=== PATIENT | male | born 1935 | race Caucasian/White ===

== ENCOUNTER 2020-03-21 16:22 | Inpatient (IN) | payer MEDICARE, OTHER ==
[~2020-03-21] VITALS: Ht 188 cm; Wt 73.0 kg
--- NOTE | 2020-03-21 17:00 | NUR ---
pt confused, trying to leave the room holding, yelling and threathening the nurses. comfort measures and reorientation not helpful.
[2020-03-21 17:08] LABS: BASOPHILS # (AUTO) 0.1 K/uL (0.0-8.0); BASOPHILS % (AUTO) 0.8 % (0.0-2.0); EOSINOPHILS # (AUTO) 0.2 K/uL (0.0-0.7); EOSINOPHILS % (AUTO) 2.4 % (0.0-7.0); HEMOGLOBIN 11.5 g/dL (12.5-16.3); LYMPHOCYTES # (AUTO) 2.4 K/uL (20.0-40.0); LYMPHOCYTES % (AUTO) 26.2 % (20.5-51.5); MEAN CORPUSCULAR HEMOGLOBIN 31.5 uug (23.8-33.4); MEAN CORPUSCULAR HGB CONC 34 g/dL (32.5-36.3); MEAN CORPUSCULAR VOLUME 93.1 fL (73.0-96.2); MONOCYTES # (AUTO) 0.8 K/uL (2.0-10.0); MONOCYTES % (AUTO) 8.3 % (0.0-11.0); NEUTROPHILS # (AUTO) 5.7 K/uL (1.8-8.9); NEUTROPHILS % (AUTO) 62.3 % (38.5-71.5); PLATELET COUNT (AUTO) 254 K/uL (152-348); RED BLOOD CELL COUNT(AUTO) 3.66 MIL/uL (4.06-5.63); WHITE BLOOD COUNT (AUTO) 9.2 K/uL (3.6-10.2)
--- NOTE | 2020-03-21 17:10 | NUR ---
called code guerra.
[2020-03-21] MEDS ORDERED: LORAZEPAM 2 MG/1 ML VIAL IM ONE ×2 (17:15→17:45)
[2020-03-21] MEDS ORDERED: LORAZEPAM 2 MG/1 ML VIAL ONE ×2 (17:15→18:09)
--- NOTE | 2020-03-21 17:15 | NUR ---
Patient became combative, confused and trying to leave the ER. Ordered dose of Ativan given.
[2020-03-21] MEDS ORDERED: TEMA7.5C PO (17:17)
[2020-03-21] MEDS ORDERED: MAGN400O6 PO (17:17)
[2020-03-21] MEDS ORDERED: LORA-258 PO (17:17)
[2020-03-21] MEDS ORDERED: OMEP20CA15 PO (17:17)
[2020-03-21] MEDS ORDERED: CLON0.1T PO (17:17)
[2020-03-21] MEDS ORDERED: ATOR20TA PO (17:17)
[2020-03-21] MEDS ORDERED: DOCU100C36 PO (17:17)
[2020-03-21] MEDS ORDERED: ESCI5TAB PO (17:17)
[2020-03-21] MEDS ORDERED: HYDR12.55 PO (17:17)
[2020-03-21] MEDS ORDERED: METO25TA6 PO (17:17)
[2020-03-21] MEDS ORDERED: HYDR-4077 PO (17:17)
[2020-03-21] MEDS ORDERED: LORA0.5T48 GT (17:17)
[2020-03-21] MEDS ORDERED: NA P133E RC (17:17)
[2020-03-21] MEDS ORDERED: ACET-2154 PO (17:17)
[2020-03-21] MEDS ORDERED: LOSA50TA39 PO (17:17)
[2020-03-21] MEDS ORDERED: QUET25TA PO ×2 (17:17)
[2020-03-21] MEDS ORDERED: BISA10SU61 RC (17:17)
[2020-03-21] MEDS ORDERED: BUDE10.2 INH (17:17)
[2020-03-21] MEDS ORDERED: POTA10CA43 PO (17:17)
[2020-03-21 17:19] LABS: CARBON DIOXIDE 27 mmol/L (21-32); CHLORIDE 105 mmol/L (98-107); CREATININE 1.9 mg/dL (0.6-1.3); GLUCOSE 121 mg/dL (74-106); POTASSIUM 4.3 mmol/L (3.5-5.1); UREA NITROGEN, BLOOD 43 mg/dL (7-18)
[2020-03-21 17:25] LABS: ETHANOL < 3 MG/DL (0-0)
[2020-03-21 17:26] LABS: ALANINE AMINOTRANSFERASE 20 U/L (16-63); ALKALINE PHOSPHATASE 82 U/L (50-136); ASPARTATE AMINOTRANSFERASE 15 U/L (15-37); BILIRUBIN,DIRECT 0.1 mg/dL (0.0-0.2); BILIRUBIN,TOTAL 0.4 mg/dL (0.2-1.0); TOTAL PROTEIN, SERUM 7.3 g/dL (6.4-8.2)
[2020-03-21 17:31] LABS: ACETAMINOPHEN < 2.0 ug/mL (10-30)
--- NOTE | 2020-03-21 17:35 | NUR ---
Renuka correa in [facility] - 03/21/20 at 1908 by DUSTIN code charlie singh.
[2020-03-21 17:44] LABS: THYROID STIMULATING HORMONE 0.982 mIU/mL (0.358-3.740)
--- NOTE | 2020-03-21 17:45 | NUR ---
Patient continued to be combative, order received for bilateral soft wrist restraints, and additional dose of ativan administered.
--- NOTE | 2020-03-21 18:50 | NUR ---
Patient resting comfortably in bed, no distress noted at this time. Patient continues to be in soft wrist restraints as ordered. circulation checked and intact.
[2020-03-21] MEDS ORDERED: IV NS 1000 ML 1,000 ML IV ONE (19:00)
--- NOTE | 2020-03-21 20:52 | NUR ---
[place] Rn paged for eval. ETA 1 hr
--- NOTE | 2020-03-21 23:12 | NUR ---
Report given to UMA Ortiz.
--- NOTE | 2020-03-22 00:20 | NUR ---
Patient transported to [facility] in stable condition.
[2020-03-22] MEDS ORDERED: MAGNESIUM HYDROXIDE 30 ML LIQUID UDC PO PRN (00:30)
[2020-03-22] MEDS ORDERED: MAG HYDROX/AL HYDROX/SIMETH 30 ML LIQUID UDC PO PRN (00:30)
[2020-03-22 00:47] VITALS: BP 157/83
--- NOTE | 2020-03-22 03:48 | NUR ---
received to care, at 0030 from the emergency room, on a 72 hour hold for danger to others/ gravely disabled, [facility] according to the hold, he had been increasingly confused, striking out and hitting staff, attempted to leave the facility several times, non compliant with medications, wandering from room to room, thinking he is in [place]. upon arrival on the unit, he appeared confused, and sleepy (he received 2 mg ativan IM, in the emergency room). he was unable to provide any information. he went to sleep, shortly after arriving. as of now, he continues to sleep. no distress noted.
--- NOTE | 2020-03-22 06:00 | NUR ---
slept 4.25 hours, total. continues to sleep. no distress noted.
[2020-03-22 07:30] VITALS: BP 135/57
[2020-03-22] MEDS ORDERED: CLONIDINE HCL 0.1 MG TABLET PO PRN (09:45)
[2020-03-22] MEDS ORDERED: FLEET ENEMA 133 ML BOTTLE RC PRN (09:45)
[2020-03-22] MEDS ORDERED: MAGNESIUM HYDROXIDE 30 ML LIQUID UDC PO SCH (09:45)
[2020-03-22] MEDS ORDERED: BISACODYL 10 MG SUPP.RECT RC PRN (09:45)
[2020-03-22] MEDS ORDERED: ACETAMINOPHEN 325 MG TABLET PO PRN (09:45)
[2020-03-22] MEDS: SERTRALINE HCL 50 MG TABLET PO SCH (10:21)
[2020-03-22] MEDS: QUETIAPINE FUMARATE 25 MG TABLET PO SCH ×4 (10:21→21:07)
--- NOTE | 2020-03-22 11:00 | NUR ---
Patient received in bed sleeping. Patient AAO x 1 at this moment, was bale to state up on assessment. Pt also confused and forgetful. No acute distress noted. NO agitation noted at this time. Compliant with care. patient seen by Dr. Drake with new meds ordered. Due medications administered as ordered and scheduled. Patient assisted up on Leah-chair, skin cleaned and ate breakfast. Safety measures in place and will continue with care.
--- NOTE | 2020-03-22 12:35 | NUR ---
WOUND CARE CONSULT: VERY LIMITED ASSESSMENT TODAY DUE TO PT REFUSAL TO ALLOW ANY SKIN ASSESSMENT EXCEPT FOR LEFT ARM. LEFT ARM NOTED TO HAVE DISCOLORATION WITH HEALED AREA TO LEFT ELBOW WITH PEELING SKIN. RT WRIST HAS COBAN DRESSING WHICH PT REFUSED TO HAVE REMOVED OR TOUCHED. NO DRAINAGE NOTED ON DRESSING. RECOMMENDATIONS MADE FOR SKIN PROTECTION AND DISCUSSED WITH NURSING STAFF. WILL SEE PRN. DE LOS SANTOS IN AGREEMENT WITH PLAN OF CARE.
[2020-03-22] MEDS ORDERED: Z GUARD REMEDY PASTE 57 GM TUBE TOP PRN (12:45)
--- NOTE | 2020-03-22 13:27 | NUR ---
INITIAL DISCHARGE PLAN: Pt resides at [facility] [[address] [place] [address];[phone]].Pt would like to return to this SNF after discharge. DONNA attempted to contact pts daughter, Pat Guerra [[phone]] to discuss plan of care and discharge planning but there was no answer and no voice mail was set up to leave call-back information. DNONA will attempt to contact pts daughter again at a later time. DONNA will work with the pt, pts family, and MD to form a safe and proper discharge plan.
--- NOTE | 2020-03-22 14:00 | NUR ---
Skin treatment done on right wrist open skin tear as ordered. Patient noted taking out dressing. Explained to patient and reapplied dressing and lightly secured with Coban wrap.
[2020-03-22] MEDS: hydrALAZINE HCL 50 MG TABLET PO SCH ×2 (14:47→22:41)
[2020-03-22 15:05] VITALS: BP 163/78
[2020-03-22] MEDS: METOPROLOL TARTRATE 25 MG TABLET PO SCH (17:09)
[2020-03-22] MEDS: DOCUSATE SODIUM 100 MG CAPSULE PO SCH (17:09)
--- NOTE | 2020-03-22 18:54 | NUR ---
Patient sitting by the nurses station for better monitoring. Pt. is AAO x 1, able to express self. NO acute distress noted. Vital signs stable. Patient was calm throughout shift. NO episodes of of agitation or striking out noted. Due medications administered and tolerated well. patient noted with episodes of depressed mood; patient also joined in activities of the day. Denies any SI. Needs attended, skin kept clean and dry. Safety measures in place and will continue with care.
--- NOTE | 2020-03-22 19:53 | NUR ---
Endorsed to PM shift.
[2020-03-22 20:06] VITALS: BP 126/51
[2020-03-22] MEDS: ATORVASTATIN 20 MG TABLET PO SCH (21:07)
--- NOTE | 2020-03-22 21:44 | NUR ---
Patient received in christopher chair in front of nursing station. Patient alert/oriented x1 with confusion noted. Patient has flat affect, easily irritable and agitated. Patient denies SI Patient interacts in a conversation when engaged. Cooperative with care, needs meet.Patient complaint with medication Safety measures in place,safe environment, frequent rounding, clutter free environment, and monitored closely and will continue with care.
[2020-03-22] MEDS: ZOLPIDEM 5 MG TABLET PO PRN (22:42)
[2020-03-23] MEDS: PANTOPRAZOLE SODIUM 40 MG TABLET.DR PO SCH (06:35)
[2020-03-23] MEDS: hydrALAZINE HCL 50 MG TABLET PO SCH ×3 (06:35→21:12)
[2020-03-23 07:12] LABS: BASOPHILS # (AUTO) 0.1 K/uL (0.0-8.0); BASOPHILS % (AUTO) 0.9 % (0.0-2.0); EOSINOPHILS # (AUTO) 0.2 K/uL (0.0-0.7); HEMATOCRIT 33.7 % (36.7-47.1); HEMOGLOBIN 11.6 g/dL (12.5-16.3); LYMPHOCYTES # (AUTO) 1.5 K/uL (20.0-40.0); MEAN CORPUSCULAR HEMOGLOBIN 31.6 uug (23.8-33.4); MEAN CORPUSCULAR HGB CONC 35 g/dL (32.5-36.3); MEAN CORPUSCULAR VOLUME 91.7 fL (73.0-96.2); MONOCYTES # (AUTO) 0.6 K/uL (2.0-10.0); MONOCYTES % (AUTO) 6.3 % (0.0-11.0); NEUTROPHILS # (AUTO) 6.9 K/uL (1.8-8.9); NEUTROPHILS % (AUTO) 74.8 % (38.5-71.5); PLATELET COUNT (AUTO) 273 K/uL (152-348); RED BLOOD CELL COUNT(AUTO) 3.67 MIL/uL (4.06-5.63); WHITE BLOOD COUNT (AUTO) 9.2 K/uL (3.6-10.2)
[2020-03-23 07:26] LABS: ALANINE AMINOTRANSFERASE 23 U/L (16-63); ALKALINE PHOSPHATASE 82 U/L (50-136); ASPARTATE AMINOTRANSFERASE 22 U/L (15-37); BILIRUBIN,TOTAL 0.7 mg/dL (0.2-1.0); CARBON DIOXIDE 29 mmol/L (21-32); CHLORIDE 103 mmol/L (98-107); CREATININE 1.9 mg/dL (0.6-1.3); GLUCOSE 96 mg/dL (74-106); POTASSIUM 3.6 mmol/L (3.5-5.1); TOTAL PROTEIN, SERUM 7.5 g/dL (6.4-8.2); UREA NITROGEN, BLOOD 32 mg/dL (7-18)
[2020-03-23 07:30] VITALS: BP 121/55
[2020-03-23 07:51] LABS: MAGNESIUM 2.5 mg/dL (1.8-2.4); PHOSPHOROUS 3.9 mg/dL (2.5-4.9)
[2020-03-23] MEDS: SERTRALINE HCL 50 MG TABLET PO SCH (08:04)
[2020-03-23] MEDS: FLUTICASONE/VILANTEROL 1 EACH BLST.W.DEV INH SCH (08:04)
[2020-03-23] MEDS: DOCUSATE SODIUM 100 MG CAPSULE PO SCH ×2 (08:05→16:00)
[2020-03-23] MEDS: QUETIAPINE FUMARATE 25 MG TABLET PO SCH ×4 (08:05→20:52)
[2020-03-23] MEDS ORDERED: POTASSIUM CHLORIDE 10 MEQ TAB.PRT.SR PO SCH (09:00)
[2020-03-23] MEDS: METOPROLOL TARTRATE 25 MG TABLET PO SCH ×2 (09:00→16:00)
[2020-03-23] MEDS ORDERED: HYDROCHLOROTHIAZIDE 12.5 MG CAPSULE PO SCH (09:00)
[2020-03-23] MEDS ORDERED: Medication Not On Formulary EA (Omeprazole 1 CAP) PO SCH (09:00)
[2020-03-23] MEDS ORDERED: POTASSIUM CHLORIDE 20 MEQ TAB.PRT.SR PO SCH (09:00)
[2020-03-23] MEDS: LOSARTAN POTASSIUM 50 MG TABLET PO SCH (09:00)
--- NOTE | 2020-03-23 12:16 | NUR ---
PT eating at the moment. Will do renal us tmrw.
--- NOTE | 2020-03-23 14:56 | NUR ---
GPS: RECEIVED PATIENT aOX1, CONFUSED, SOMEWHAT LABILE, PATIENT CANNOT RECALL THE EVENTS WHY HE IS HERE, PATIENT ON PRASANNA CHAIR, NEEDED ASSISTANCE ON ADL, ASSISTED WITH MEAL, PATIENT HAS VERY POOR INTAKE EVEN DIET WAS CHANGE TO FINGER FOOD, PATIENT WOULD EXHIBIT SHAKINESS OF HIS HANDS AND VERY UNSTEADY GAIT DUE TO HIS PARKINSONS DISEASE, PATIENT TOOK IN BETWEEN NAPS AND SEEN ENJOYING MUSIC THERAPY, PATIENT DENIES ANY PAIN, 0/10 PAIN SCORE, PATIENT RECEIVED APHONECALL WITH A BUT PATIENT DID NOT ANSWER THE PHONE BUT INSTEAD DROP THE EXTENSION PHONE ON THE FLOOR, WILL CONTINUE MONITOR
[2020-03-23 16:00] VITALS: BP 129/60
--- NOTE | 2020-03-23 18:06 | NUR ---
patient responded very well with medication, ate his meal, the finger food helps alot, but still needs supervision and encouragement with meals, no distress will continue monitor
--- NOTE | 2020-03-23 19:35 | NUR ---
RECEIVED PATIENT SEATED ON RECLINING CHAIR, ALERT BUT FORGETFUL, PATIENT HAS NO COMPLAIN OF PAIN AT THIS TIME. PATIENT SMILE WHEN GREETED, APPEARED TO BE IN GOOD MOOD, CONT TO MONITOR.
[2020-03-23 20:20] VITALS: BP 135/70
[2020-03-23] MEDS: ATORVASTATIN 20 MG TABLET PO SCH (20:52)
[2020-03-23] MEDS: ZOLPIDEM 5 MG TABLET PO PRN (23:26)
--- NOTE | 2020-03-23 23:26 | NUR ---
PATIENT TOOK ALL 2100 MEDICATIONS, AND WIDE AWAKE UNABLE TO SLEEP. PATIENT WAS GIVEN AMBIEN PO FOR SLEEP AWAITING FOR RESPONSE, CONT TO MONITOR.
--- NOTE | 2020-03-24 01:30 | NUR ---
PATIENT SLEEP INTERMITTENTLY, WAKES UP THEN GOES BACK TO SLEEP. PATIENT WAS KEPT WARM AND COMFORTABLE, CONT TO MONITOR.
[2020-03-24] MEDS: hydrALAZINE HCL 50 MG TABLET PO SCH ×3 (06:00→21:19)
[2020-03-24] MEDS: PANTOPRAZOLE SODIUM 40 MG TABLET.DR PO SCH (06:12)
--- NOTE | 2020-03-24 06:17 | NUR ---
PATIENT HAS EPISODE OF NON RESPONSIVE TO STIMULI FOR FEW MINUTES APROX 2 MINUTES AFTER SHOWER, PATIENT WAS KEPT COVERED AND WARM, V/S BP109/47, BS 110, T 98.2, 97% OXYGEN SAT, HR 80. CONT TO MONITOR.
--- NOTE | 2020-03-24 06:31 | NUR ---
PATIENT SLEPT FOR 5.30 HRS.
[2020-03-24 07:30] VITALS: BP 135/49
[2020-03-24 08:03] LABS: BASOPHILS # (AUTO) 0.1 K/uL (0.0-8.0); BASOPHILS % (AUTO) 0.7 % (0.0-2.0); EOSINOPHILS # (AUTO) 0.1 K/uL (0.0-0.7); EOSINOPHILS % (AUTO) 1.2 % (0.0-7.0); HEMATOCRIT 30.8 % (36.7-47.1); HEMOGLOBIN 10.6 g/dL (12.5-16.3); LYMPHOCYTES # (AUTO) 0.7 K/uL (20.0-40.0); LYMPHOCYTES % (AUTO) 7.9 % (20.5-51.5); MEAN CORPUSCULAR HEMOGLOBIN 31.6 uug (23.8-33.4); MEAN CORPUSCULAR HGB CONC 34 g/dL (32.5-36.3); MEAN CORPUSCULAR VOLUME 91.9 fL (73.0-96.2); MONOCYTES # (AUTO) 0.6 K/uL (2.0-10.0); MONOCYTES % (AUTO) 6.4 % (0.0-11.0); NEUTROPHILS # (AUTO) 7.7 K/uL (1.8-8.9); NEUTROPHILS % (AUTO) 83.8 % (38.5-71.5); PLATELET COUNT (AUTO) 210 K/uL (152-348); RED BLOOD CELL COUNT(AUTO) 3.36 MIL/uL (4.06-5.63); WHITE BLOOD COUNT (AUTO) 9.2 K/uL (3.6-10.2)
[2020-03-24] MEDS: DOCUSATE SODIUM 100 MG CAPSULE PO SCH ×2 (08:06→17:00)
[2020-03-24] MEDS: LOSARTAN POTASSIUM 50 MG TABLET PO SCH (08:06)
[2020-03-24] MEDS: SERTRALINE HCL 50 MG TABLET PO SCH (08:07)
[2020-03-24] MEDS: METOPROLOL TARTRATE 25 MG TABLET PO SCH ×2 (08:07→17:09)
[2020-03-24] MEDS: QUETIAPINE FUMARATE 25 MG TABLET PO SCH ×4 (08:07→20:31)
[2020-03-24] MEDS: FLUTICASONE/VILANTEROL 1 EACH BLST.W.DEV INH SCH (08:08)
[2020-03-24 08:24] LABS: ALANINE AMINOTRANSFERASE 20 U/L (16-63); ALKALINE PHOSPHATASE 77 U/L (50-136); ASPARTATE AMINOTRANSFERASE 21 U/L (15-37); BILIRUBIN,TOTAL 0.7 mg/dL (0.2-1.0); CARBON DIOXIDE 28 mmol/L (21-32); CHLORIDE 106 mmol/L (98-107); CHOLESTEROL 113 mg/dL (<200); CREATININE 1.9 mg/dL (0.6-1.3); GLUCOSE 105 mg/dL (74-106); HDL CHOLESTEROL 51 mg/dL (40-60); MAGNESIUM 2.6 mg/dL (1.8-2.4); PHOSPHOROUS 3.6 mg/dL (2.5-4.9); POTASSIUM 3.6 mmol/L (3.5-5.1); TOTAL PROTEIN, SERUM 6.7 g/dL (6.4-8.2); TRIGLYCERIDES 66 MG/DL (30-150); UREA NITROGEN, BLOOD 40 mg/dL (7-18)
--- NOTE | 2020-03-24 14:04 | NUR ---
patient AOx1 confused, up to christopher-chair,total assist with ADL, compliant with all po medication.
[2020-03-24 15:20] VITALS: BP 143/55
[2020-03-24] MEDS: LORAZEPAM 0.5 MG TABLET PO PRN (17:09)
[2020-03-24 20:09] VITALS: BP 153/57
[2020-03-24] MEDS: ATORVASTATIN 20 MG TABLET PO SCH (20:30)
[2020-03-24] MEDS: ZOLPIDEM 5 MG TABLET PO PRN (22:25)
[2020-03-25] MEDS: PANTOPRAZOLE SODIUM 40 MG TABLET.DR PO SCH (06:20)
[2020-03-25] MEDS: hydrALAZINE HCL 50 MG TABLET PO SCH ×3 (06:20→21:04)
[2020-03-25 07:30] VITALS: BP 165/55
[2020-03-25] MEDS: SERTRALINE HCL 50 MG TABLET PO SCH (08:18)
[2020-03-25] MEDS: QUETIAPINE FUMARATE 25 MG TABLET PO SCH ×4 (08:18→21:02)
[2020-03-25] MEDS: METOPROLOL TARTRATE 25 MG TABLET PO SCH ×2 (08:19→16:55)
[2020-03-25] MEDS: LOSARTAN POTASSIUM 50 MG TABLET PO SCH (08:19)
[2020-03-25] MEDS: DOCUSATE SODIUM 100 MG CAPSULE PO SCH ×2 (08:20→16:58)
[2020-03-25] MEDS: FLUTICASONE/VILANTEROL 1 EACH BLST.W.DEV INH SCH (08:20)
[2020-03-25] MEDS: LORAZEPAM 0.5 MG TABLET PO PRN (12:22)
[2020-03-25 16:00] VITALS: BP 126/50
[2020-03-25 16:11] LABS: A/G RATIO 1.2 (0.7-1.7); ALBUMIN 3.8 g/dL (2.9-4.4); ALPHA-1-GLOBULIN 0.2 g/dL (0.0-0.4); ALPHA-2-GLOBULIN 0.8 g/dL (0.4-1.0); BETA GLOBULIN 1.3 g/dL (0.7-1.3); GAMMA GLOBULIN 0.8 g/dL (0.4-1.8); GLOBULIN, TOTAL 3.1 g/dL (2.2-3.9); M-SPIKE Not Observed g/dL (Not Observed)
--- NOTE | 2020-03-25 17:49 | NUR ---
received patient AOx1 confused,patient in bed ,total assist with ADL, compliant with all po medication.ativan 0.5 mg given as ordered for agitated.
[2020-03-25 20:48] VITALS: BP 183/64
[2020-03-25] MEDS: ATORVASTATIN 20 MG TABLET PO SCH (21:03)
--- NOTE | 2020-03-25 22:00 | NUR ---
received to care, up in christopher chair, restless at times, talking to self. compliant with medications and staff direction. as of 2199, he remains in in christopher chair, talking to self. no distress noted. will continue to monitor closely.
[2020-03-25] MEDS: ZOLPIDEM 5 MG TABLET PO PRN (23:50)
[2020-03-25] MEDS: ACETAMINOPHEN 325 MG TABLET PO PRN (23:50)
--- NOTE | 2020-03-25 23:50 | NUR ---
remains awake, and restless. PRN ambien was given at this time, for insomnia.
--- NOTE | 2020-03-26 00:15 | NUR ---
assisted to bed. appears to be asleep. no distress noted.
[2020-03-26] MEDS: hydrALAZINE HCL 50 MG TABLET PO SCH ×3 (05:42→20:25)
[2020-03-26] MEDS: PANTOPRAZOLE SODIUM 40 MG TABLET.DR PO SCH (05:49)
--- NOTE | 2020-03-26 06:00 | NUR ---
slept 5.25 hours, total. continues to sleep. no distress noted.
[2020-03-26 07:30] VITALS: BP 165/60
[2020-03-26] MEDS: SERTRALINE HCL 50 MG TABLET PO SCH (08:15)
[2020-03-26] MEDS: DOCUSATE SODIUM 100 MG CAPSULE PO SCH ×2 (08:15→16:01)
[2020-03-26] MEDS: METOPROLOL TARTRATE 25 MG TABLET PO SCH ×2 (08:15→16:01)
[2020-03-26] MEDS: LOSARTAN POTASSIUM 50 MG TABLET PO SCH (08:16)
[2020-03-26] MEDS: QUETIAPINE FUMARATE 25 MG TABLET PO SCH ×4 (08:18→20:20)
[2020-03-26] MEDS: FLUTICASONE/VILANTEROL 1 EACH BLST.W.DEV INH SCH (08:18)
--- NOTE | 2020-03-26 12:06 | NUR ---
DONNA Coordination of Care: DONNA contacted the mission coordinator, Mary at [facility] [address] [place] [address] ([phone]) and confirmed patient is accepted back to facility upon discharge.
--- NOTE | 2020-03-26 12:09 | NUR ---
Social Work Firearms Report ([employer]): Rotary Driller Helper completed and submitted a [employer] firearms report for 5150 danger to others and grave disability certification. A copy of report has been placed in patient chart.
[2020-03-26] MEDS: LORAZEPAM 0.5 MG TABLET PO PRN (12:19)
--- NOTE | 2020-03-26 14:22 | NUR ---
DONNA Brief Individual Counseling: SW met with patient for brief individual counseling to address patient's delusional thought process. Patient presents alert and oriented times 2. Patient presents disheveled and unable to engage in a meaningful conversation. Patient is calm and cooperative with va underwriter. This va underwriter provided emotional support and redirection and reality orientation. Patient does not present to be having delusional thought process. patient was able to make good eye contact.
--- NOTE | 2020-03-26 14:29 | NUR ---
received patient AOx1 confused,up to christopher-chair,patient ,total assit with ADL,shower given ,remains clam and cooperative now compliant with all po medication.
[2020-03-26 16:00] VITALS: BP 132/39
--- NOTE | 2020-03-26 18:24 | NUR ---
GPS:PATIENT STILL CONFUSED, QUIETLY SITTING I Addendum: 03/26/20 at 1828 by ARTUR CALDERA RN SITTING IN THE PRASANNA-CHAIR
[2020-03-26 19:49] VITALS: BP 154/55
[2020-03-26] MEDS: ATORVASTATIN 20 MG TABLET PO SCH (20:20)
--- NOTE | 2020-03-26 22:00 | NUR ---
received to care, up in christopher chair, appears confused. compliant with medications, snacks, fluids, and staff direction. as of 2199, he remains awake, in in christopher chair. no distress noted. will continue to monitor closely.
[2020-03-26] MEDS: ACETAMINOPHEN 325 MG TABLET PO PRN (22:22)
[2020-03-26] MEDS: ZOLPIDEM 5 MG TABLET PO PRN (22:22)
--- NOTE | 2020-03-26 22:22 | NUR ---
remains awake, and restless. PRN ambien was given at this time, for insomnia.
--- NOTE | 2020-03-26 23:10 | NUR ---
assisted to bed. appears to be asleep. no distress noted.
[2020-03-27] MEDS: hydrALAZINE HCL 50 MG TABLET PO SCH ×3 (05:21→20:56)
--- NOTE | 2020-03-27 05:50 | NUR ---
slept 5.75 hours, total. is now awake. assisted with AM care, and into the christopher chair, for safety. currently up at nurses station, drinking some apple juice; no distress noted. will continue to monitor closely.
[2020-03-27] MEDS: PANTOPRAZOLE SODIUM 40 MG TABLET.DR PO SCH (06:15)
[2020-03-27 07:30] VITALS: BP 189/63
--- NOTE | 2020-03-27 08:00 | NUR ---
GPS: Received patient aox1, quiet responsive, patient calm, patient needing total assist with ADL, patient compliant with medication, seen by Dr. Drake , new orders made and carried out, will continue monitor
[2020-03-27] MEDS: QUETIAPINE FUMARATE 25 MG TABLET PO SCH ×3 (08:03→20:57)
[2020-03-27] MEDS: LORAZEPAM 0.5 MG TABLET PO PRN (08:04)
[2020-03-27] MEDS: METOPROLOL TARTRATE 25 MG TABLET PO SCH ×2 (08:04→16:06)
[2020-03-27] MEDS: DOCUSATE SODIUM 100 MG CAPSULE PO SCH ×2 (08:04→16:05)
[2020-03-27] MEDS: LOSARTAN POTASSIUM 50 MG TABLET PO SCH (08:04)
[2020-03-27] MEDS: FLUTICASONE/VILANTEROL 1 EACH BLST.W.DEV INH SCH (08:05)
[2020-03-27] MEDS: SERTRALINE HCL 50 MG TABLET PO SCH (08:06)
[2020-03-27] MEDS ORDERED: QUETIAPINE FUMARATE 25 MG TABLET PO ONE (08:45)
[2020-03-27 16:00] VITALS: BP 162/52
[2020-03-27 19:56] VITALS: BP 116/65
--- NOTE | 2020-03-27 20:10 | NUR ---
Received patient in the hallway, calm, med compliant, needs assistance with daily living, patient will remain in a psych facility for further evaluation and treatment.
[2020-03-27] MEDS: ATORVASTATIN 20 MG TABLET PO SCH (20:57)
[2020-03-27] MEDS: ZOLPIDEM 5 MG TABLET PO PRN (23:38)
[2020-03-28] MEDS: hydrALAZINE HCL 50 MG TABLET PO SCH ×3 (06:05→21:12)
[2020-03-28] MEDS: PANTOPRAZOLE SODIUM 40 MG TABLET.DR PO SCH (06:05)
[2020-03-28 07:30] VITALS: BP 159/54
[2020-03-28 07:43] LABS: BASOPHILS % (AUTO) 0.6 % (0.0-2.0); EOSINOPHILS # (AUTO) 0.2 K/uL (0.0-0.7); EOSINOPHILS % (AUTO) 2.9 % (0.0-7.0); HEMATOCRIT 30.4 % (36.7-47.1); HEMOGLOBIN 10.5 g/dL (12.5-16.3); LYMPHOCYTES # (AUTO) 1.3 K/uL (20.0-40.0); LYMPHOCYTES % (AUTO) 17.3 % (20.5-51.5); MEAN CORPUSCULAR HEMOGLOBIN 31.7 uug (23.8-33.4); MEAN CORPUSCULAR HGB CONC 35 g/dL (32.5-36.3); MEAN CORPUSCULAR VOLUME 91.8 fL (73.0-96.2); MONOCYTES # (AUTO) 0.6 K/uL (2.0-10.0); MONOCYTES % (AUTO) 7.6 % (0.0-11.0); NEUTROPHILS # (AUTO) 5.2 K/uL (1.8-8.9); NEUTROPHILS % (AUTO) 71.6 % (38.5-71.5); PLATELET COUNT (AUTO) 204 K/uL (152-348); RED BLOOD CELL COUNT(AUTO) 3.32 MIL/uL (4.06-5.63); WHITE BLOOD COUNT (AUTO) 7.3 K/uL (3.6-10.2)
[2020-03-28 08:05] LABS: ALANINE AMINOTRANSFERASE 27 U/L (16-63); ALKALINE PHOSPHATASE 75 U/L (50-136); ASPARTATE AMINOTRANSFERASE 35 U/L (15-37); BILIRUBIN,TOTAL 0.5 mg/dL (0.2-1.0); CARBON DIOXIDE 29 mmol/L (21-32); CHLORIDE 109 mmol/L (98-107); CREATININE 1.5 mg/dL (0.6-1.3); GLUCOSE 102 mg/dL (74-106); MAGNESIUM 2.2 mg/dL (1.8-2.4); PHOSPHOROUS 3.3 mg/dL (2.5-4.9); POTASSIUM 3.6 mmol/L (3.5-5.1); TOTAL PROTEIN, SERUM 6.7 g/dL (6.4-8.2); UREA NITROGEN, BLOOD 50 mg/dL (7-18)
[2020-03-28] MEDS: FLUTICASONE/VILANTEROL 1 EACH BLST.W.DEV INH SCH (08:44)
[2020-03-28] MEDS: SERTRALINE HCL 50 MG TABLET PO SCH (08:45)
[2020-03-28] MEDS: DOCUSATE SODIUM 100 MG CAPSULE PO SCH ×2 (08:45→16:19)
[2020-03-28] MEDS: QUETIAPINE FUMARATE 25 MG TABLET PO SCH ×3 (08:45→20:27)
[2020-03-28] MEDS: LOSARTAN POTASSIUM 50 MG TABLET PO SCH (08:46)
[2020-03-28] MEDS: METOPROLOL TARTRATE 25 MG TABLET PO SCH ×2 (08:47→16:21)
[2020-03-28 16:00] VITALS: BP 132/48
--- NOTE | 2020-03-28 16:02 | NUR ---
Social Work Coordination of Care: trailhead maintenance worker spoke with Leslie from [facility] ([phone]) who stated that they cannot accept patient's insurance. trailhead maintenance worker spoke contacted [facility] for IPOC program ([phone]) and sent patient's H & P psychiatric notes, medication list, and laboratory (F:[phone]). Per Maeve, she stated that they cannot accept patient's insurance and that they are not accepting medicare. This proposal writer Iggy Bustillos ([phone]) from [facility] and sent patient's H & P psychiatric notes, progress notes, and medication list. Per Iggy, he stated that admin denied patient for there outpatient IPOC. This proposal writer spoke with Ivelisse from [facility] for IPOC program ([phone]) and stated that there program is on wait list at the moment. This proposal writer spoke with Randy from [facility] ([phone]) and sent patient's clinicals to review for IPOC Program. This proposal writer spoke with Michelle from [facility] for IPOC ([phone]) who will review patient's clinicals and will get back to this proposal writer. Addendum: 03/29/20 at 1250 by DONNA MITCHELL disregard incorrect patient.
--- NOTE | 2020-03-28 17:50 | NUR ---
Left patient resting AAox1. calm cooperative throughout the shift. no c/of pain, will endorse to incoming shift.
[2020-03-28 20:00] VITALS: BP 113/46
[2020-03-28] MEDS: ATORVASTATIN 20 MG TABLET PO SCH (20:27)
[2020-03-28] MEDS: TRAZODONE 50 MG TABLET PO SCH (20:27)
--- NOTE | 2020-03-29 03:06 | NUR ---
Patient received sitting in the Leah-chair. AAO x1. pleasant upon approach. Affect flat. No acute distress and SOB was noted. No complain of pain. No behavioral issues. Denies SI. Calm and cooperative and compliant with medications. Safety measure maintained, Fall precaution observed. Continue to monitor and will endorse to the oncoming nurse.
[2020-03-29] MEDS: hydrALAZINE HCL 50 MG TABLET PO SCH ×3 (06:10→22:00)
[2020-03-29] MEDS: PANTOPRAZOLE SODIUM 40 MG TABLET.DR PO SCH (06:11)
[2020-03-29 06:52] LABS: BASOPHILS # (AUTO) 0.1 K/uL (0.0-8.0); BASOPHILS % (AUTO) 0.9 % (0.0-2.0); EOSINOPHILS # (AUTO) 0.3 K/uL (0.0-0.7); EOSINOPHILS % (AUTO) 4.2 % (0.0-7.0); HEMATOCRIT 30.4 % (36.7-47.1); HEMOGLOBIN 10.6 g/dL (12.5-16.3); LYMPHOCYTES # (AUTO) 1.5 K/uL (20.0-40.0); LYMPHOCYTES % (AUTO) 21.2 % (20.5-51.5); MEAN CORPUSCULAR HEMOGLOBIN 31.7 uug (23.8-33.4); MEAN CORPUSCULAR HGB CONC 35 g/dL (32.5-36.3); MEAN CORPUSCULAR VOLUME 91.3 fL (73.0-96.2); MONOCYTES # (AUTO) 0.6 K/uL (2.0-10.0); MONOCYTES % (AUTO) 8.9 % (0.0-11.0); NEUTROPHILS # (AUTO) 4.5 K/uL (1.8-8.9); NEUTROPHILS % (AUTO) 64.8 % (38.5-71.5); PLATELET COUNT (AUTO) 198 K/uL (152-348); RED BLOOD CELL COUNT(AUTO) 3.33 MIL/uL (4.06-5.63)
[2020-03-29 07:30] VITALS: BP 127/55
[2020-03-29 07:40] LABS: IRON, SERUM 76 ug/dL (50-175)
[2020-03-29 07:56] LABS: ALANINE AMINOTRANSFERASE 26 U/L (16-63); ALKALINE PHOSPHATASE 73 U/L (50-136); ASPARTATE AMINOTRANSFERASE 16 U/L (15-37); BILIRUBIN,TOTAL 0.6 mg/dL (0.2-1.0); CARBON DIOXIDE 33 mmol/L (21-32); CHLORIDE 110 mmol/L (98-107); CREATININE 1.8 mg/dL (0.6-1.3); FERRITIN 99 ng/mL (26-388); GLUCOSE 103 mg/dL (74-106); MAGNESIUM 2.3 mg/dL (1.8-2.4); PHOSPHOROUS 3.3 mg/dL (2.5-4.9); POTASSIUM 3.7 mmol/L (3.5-5.1); TOTAL PROTEIN, SERUM 6.4 g/dL (6.4-8.2); UREA NITROGEN, BLOOD 56 mg/dL (7-18)
[2020-03-29] MEDS: QUETIAPINE FUMARATE 25 MG TABLET PO SCH ×3 (10:12→20:36)
[2020-03-29] MEDS: DOCUSATE SODIUM 100 MG CAPSULE PO SCH ×2 (10:12→17:06)
[2020-03-29] MEDS: METOPROLOL TARTRATE 25 MG TABLET PO SCH ×2 (10:17→17:05)
[2020-03-29] MEDS: SERTRALINE HCL 50 MG TABLET PO SCH (10:19)
[2020-03-29] MEDS: LOSARTAN POTASSIUM 50 MG TABLET PO SCH (10:20)
[2020-03-29] MEDS: FLUTICASONE/VILANTEROL 1 EACH BLST.W.DEV INH SCH (10:25)
--- NOTE | 2020-03-29 15:12 | NUR ---
DONNA Brief Individual Counseling: SW met with patient for brief individual counseling to address patient's delusional thought process. Patient is observed sitting in christopher chair. Patient continues to present with disorganized thought process. Patient talk about unrelated things and presents with blunted affect. can worker provided brief supportive counseling. Patient does not presents to be having delusional thought process, however, patient is unable to engage in a meaningful conversation.
[2020-03-29 15:33] VITALS: BP 121/41
[2020-03-29 20:00] VITALS: BP 130/46
[2020-03-29] MEDS: ATORVASTATIN 20 MG TABLET PO SCH ×2 (20:36→21:00)
[2020-03-29] MEDS: TRAZODONE 50 MG TABLET PO SCH (20:36)
--- NOTE | 2020-03-29 22:00 | NUR ---
PATIENT INITIALLY REFUSED ALL HIS QHS MEDICATIONS; HOWEVER, AFTER MULTIPLE REDIRECTIONS, HE WAS ABLE TO ACCEPT HIS MEDICATION EXCEPT FOR LIPITOR. PT IS REASSURED FOR HIS SAFETY, SAFETY AND FALL PRECAUTION IN PLACE. WILL CONTINUE TO MONITOR.
[2020-03-30] MEDS: LORAZEPAM 0.5 MG TABLET PO PRN (00:44)
[2020-03-30] MEDS: hydrALAZINE HCL 50 MG TABLET PO SCH ×3 (06:45→22:00)
[2020-03-30] MEDS: PANTOPRAZOLE SODIUM 40 MG TABLET.DR PO SCH (06:45)
[2020-03-30 07:28] LABS: CARBON DIOXIDE 33 mmol/L (21-32); CHLORIDE 109 mmol/L (98-107); CREATININE 1.8 mg/dL (0.6-1.3); GLUCOSE 104 mg/dL (74-106); POTASSIUM 3.7 mmol/L (3.5-5.1); UREA NITROGEN, BLOOD 70 mg/dL (7-18)
[2020-03-30 07:30] VITALS: BP 141/51
[2020-03-30] MEDS: QUETIAPINE FUMARATE 25 MG TABLET PO SCH ×3 (08:14→20:51)
[2020-03-30] MEDS: SERTRALINE HCL 50 MG TABLET PO SCH (08:14)
[2020-03-30] MEDS: DOCUSATE SODIUM 100 MG CAPSULE PO SCH ×2 (08:15→16:18)
[2020-03-30] MEDS: METOPROLOL TARTRATE 25 MG TABLET PO SCH ×2 (08:16→16:19)
[2020-03-30] MEDS: LOSARTAN POTASSIUM 50 MG TABLET PO SCH (08:16)
[2020-03-30] MEDS: FLUTICASONE/VILANTEROL 1 EACH BLST.W.DEV INH SCH (08:19)
[2020-03-30] MEDS: ACETAMINOPHEN 325 MG TABLET PO PRN (10:32)
--- NOTE | 2020-03-30 13:45 | NUR ---
patient is calm comfortable, shower given, tolerated well, no distress noted, examined by dr jg broussard, encouraged to drink fluids.
[2020-03-30 16:00] VITALS: BP 129/48
--- NOTE | 2020-03-30 19:47 | NUR ---
report given to retail shift manager RN
[2020-03-30 20:00] VITALS: BP 144/50
[2020-03-30] MEDS: ATORVASTATIN 20 MG TABLET PO SCH (20:51)
[2020-03-30] MEDS: TRAZODONE 50 MG TABLET PO SCH (20:51)
[2020-03-31] MEDS ORDERED: hydrALAZINE HCL 25 MG TABLET ONE (05:42)
[2020-03-31] MEDS ORDERED: hydrALAZINE HCL 50 MG TABLET ONE (05:56)
[2020-03-31] MEDS: hydrALAZINE HCL 50 MG TABLET PO SCH ×3 (06:09→21:11)
[2020-03-31] MEDS: PANTOPRAZOLE SODIUM 40 MG TABLET.DR PO SCH (06:23)
[2020-03-31 07:30] VITALS: BP 124/45
[2020-03-31] MEDS: QUETIAPINE FUMARATE 25 MG TABLET PO SCH ×3 (08:59→21:10)
[2020-03-31] MEDS: DOCUSATE SODIUM 100 MG CAPSULE PO SCH ×2 (08:59→17:29)
[2020-03-31] MEDS: FLUTICASONE/VILANTEROL 1 EACH BLST.W.DEV INH SCH (08:59)
[2020-03-31] MEDS: LOSARTAN POTASSIUM 50 MG TABLET PO SCH ×2 (09:00→09:01)
[2020-03-31] MEDS: SERTRALINE HCL 50 MG TABLET PO SCH (09:00)
[2020-03-31] MEDS: METOPROLOL TARTRATE 25 MG TABLET PO SCH ×2 (09:00→17:00)
--- NOTE | 2020-03-31 09:45 | NUR ---
GPS: RECEIVED PT IN BED, AWAKE TO NAME AND LIGHT TOUCH. NO SOB OR DIFFICULTY BREATHING. PT NOTED SAD AND DEPRESS ON FACIAL EXPRESSION AND NOT VERBALLY EXPRESSIVE. NOTED PT COGNITIVELY UNAWARE OF SURROUNDING AT THIS TIME. ROUTINE DUE MEDICATIONS GIVEN WITH NOTED DIFFICULTY SWALLOWING AND WAS TRYING TO POCKET MEDS. WAS ABLE TO ADMINISTERED WITH SEVERAL ATTEMPTS AND ENCOURAGEMENT. PROVIDED PT WITH SAFE AND THERAPEUTIC ENVIRONMENT. WILL CONTINUE TO MONITOR AND ASSESS.
[2020-03-31 16:00] VITALS: BP 104/37
--- NOTE | 2020-03-31 18:28 | NUR ---
PT UP IN BLAS-CHAIR AND A BIT MORE AWAKE NOW. PT FAMILY CALLED AND SPOKE TO HIM WHILE UP. NOTED SOME DIFFICULTY SWALLOWING MEDICATIONS AND PHYSICIAN SCRIBE ALSO CONFIRMED PT HAVING PROBLEM SWALLOWING FOOD. MAY RECOMMEND SWALLOW EVALUATION TO INCOMING NURSE TO F/UP IN AM.
[2020-03-31 20:00] VITALS: BP 146/61
[2020-03-31] MEDS: TRAZODONE 50 MG TABLET PO SCH (21:10)
[2020-03-31] MEDS: ATORVASTATIN 20 MG TABLET PO SCH (21:10)
--- NOTE | 2020-03-31 21:23 | NUR ---
Received pt in christopher chair. No acute distress noted. FLACC 0. Due meds given as ordered, crushed meds given with apple sauce and tolerated well. Safety measures maintained. Will continue to monitor.
[2020-04-01 05:58] VITALS: BP 134/47
[2020-04-01] MEDS: hydrALAZINE HCL 50 MG TABLET PO SCH ×3 (06:03→21:00)
[2020-04-01] MEDS: PANTOPRAZOLE SODIUM 40 MG TABLET.DR PO SCH (06:03)
[2020-04-01 07:30] VITALS: BP 113/45
[2020-04-01] MEDS: QUETIAPINE FUMARATE 25 MG TABLET PO SCH ×3 (08:06→20:01)
[2020-04-01] MEDS: SERTRALINE HCL 50 MG TABLET PO SCH (08:06)
[2020-04-01] MEDS: DOCUSATE SODIUM 100 MG CAPSULE PO SCH ×2 (08:06→16:01)
[2020-04-01] MEDS: LOSARTAN POTASSIUM 50 MG TABLET PO SCH (08:08)
[2020-04-01] MEDS: METOPROLOL TARTRATE 25 MG TABLET PO SCH ×2 (08:08→16:02)
[2020-04-01] MEDS: FLUTICASONE/VILANTEROL 1 EACH BLST.W.DEV INH SCH (08:09)
[2020-04-01 15:35] VITALS: BP 105/50
--- NOTE | 2020-04-01 17:27 | NUR ---
received patient in bed to total care to all ADLS, compliant with all po medication,had BM x1,possible discharge in am.
[2020-04-01] MEDS: ATORVASTATIN 20 MG TABLET PO SCH (20:00)
[2020-04-01] MEDS: TRAZODONE 50 MG TABLET PO SCH (20:00)
[2020-04-01 21:06] VITALS: BP 121/50
[2020-04-02] MEDS: hydrALAZINE HCL 50 MG TABLET PO SCH ×2 (05:52→14:12)
--- NOTE | 2020-04-02 06:14 | NUR ---
VS stable, denies pain. Compliant with crushed medications given in pudding. A+Ox1, remains confused, disoriented, and disorganized. Assisted with ADLs, skin kept clean and dry. Noted to be aggressive and combative with care, requires multiple staff.
[2020-04-02] MEDS: PANTOPRAZOLE SODIUM 40 MG TABLET.DR PO SCH (06:35)
--- NOTE | 2020-04-02 07:02 | NUR ---
Pt became extremely combative and struck out at multiple staff when this RN attempted to take photos of his arm wounds.
[2020-04-02 07:30] VITALS: BP 145/60
--- NOTE | 2020-04-02 08:12 | NUR ---
Discharge Note: Patient will be discharged back to [facility] [address] [place] [address] ([phone]). Patient will be provided ambulance transportation today at 11AM. Patient presents alert and oriented times 2-3. Patient is not able to plan for self-care at this time but is willing to accept care provided at the facility. Patient denies suicidal or homicidal ideation. Patient is aware and agreeable with discharge plans. Patient presents with appropriate mood and congruent affect. Patient will continue to follow-up with Psychiatrist Dr. Drake and Bank Officer Dr. Grubbs at the facility. Patients Mayra ([phone]) is aware and agreeable with discharge plans.
[2020-04-02] MEDS: LOSARTAN POTASSIUM 50 MG TABLET PO SCH (08:16)
[2020-04-02] MEDS: SERTRALINE HCL 50 MG TABLET PO SCH (08:17)
[2020-04-02] MEDS: METOPROLOL TARTRATE 25 MG TABLET PO SCH (08:17)
[2020-04-02] MEDS: QUETIAPINE FUMARATE 25 MG TABLET PO SCH (08:17)
[2020-04-02] MEDS: DOCUSATE SODIUM 100 MG CAPSULE PO SCH (08:18)
[2020-04-02] MEDS: FLUTICASONE/VILANTEROL 1 EACH BLST.W.DEV INH SCH (08:18)
--- NOTE | 2020-04-02 10:20 | NUR ---
patient will be discharged back to [facility], report given to Maxine STEWART . patient had multiple skin tear and bruise on Enrique. upper extremities ,pt refused for discharge picture taken ,become agitated and aggressive when approach .all personal belonging returned to patient.
[2020-04-02 14:12] VITALS: BP 160/59
== END 2020-04-02 14:30 | DRG 885 ==
LOC: ER 16:22 → GPS 23:56
PROVIDERS: ADMIT Psychiatry & Neurology Psychiatry; ATTEND Registered Nurse
DX: F29 Unspecified psychosis not due to a substance or known physiological condition (principal); N17.9 Acute kidney failure, unspecified; N18.9 Chronic kidney disease, unspecified; G93.41 Metabolic encephalopathy; I13.0 Hypertensive heart and chronic kidney disease with heart failure and stage 1 through stage 4 chronic kidney disease, or unspecified chronic kidney disease; F03.91 Unspecified dementia, unspecified severity, with behavioral disturbance; E87.0 Hyperosmolality and hypernatremia; I50.9 Heart failure, unspecified; K21.9 Gastro-esophageal reflux disease without esophagitis; G20 Parkinson's disease; I95.1 Orthostatic hypotension; D63.8 Anemia in other chronic diseases classified elsewhere; N25.0 Renal osteodystrophy
CPT/HCPCS: 36415; 70030-TC; 71045; 76770; 80329; 83550; 83605; 83735; 83970; 84100; 84155; 84165; 84443; 85025; 85730; 93005; G0480; G0480-TC; J2060; J7030